=== PATIENT | male | born 1935 | race Caucasian/White ===

== ENCOUNTER 2020-06-25 08:57 | Emergency (ER) | payer MEDICARE, OTHER ==
[~2020-06-25] VITALS: Ht 177 cm; Wt 93.0 kg
[2020-06-25] MEDS ORDERED: KAPSPARGO SPRIN50 MG PO (09:08)
[2020-06-25] MEDS ORDERED: AMLODIPINE BESY10 MG PO (09:08)
[2020-06-25] MEDS ORDERED: OMEPRAZOLE 20 M20 M1 PO (09:09)
[2020-06-25 09:34] LABS: ABSOLUTE BASOPHILS 0.1 thou/uL (0.0-0.2); ABSOLUTE EOSINOPHILS 0.3 thou/uL (0.0-0.7); ABSOLUTE LYMPHOCYTES 1.6 thou/uL (0.8-5.3); ABSOLUTE MONOCYTES 0.9 thou/uL (0.0-1.2); ABSOLUTE NEUTROPHILS 5.4 thou/uL (1.6-8.1); EOSINOPHILS 3.4 %; HEMATOCRIT 40.6 % (42.0-52.0); LYMPHOCYTES 19.4 %; MCHC 34.4 g/dL (28.0-37.0); MCV 87.3 fL (80.0-100.0); MONOCYTES 10.6 %; MPV 9.3 fl. (7.2-11.1); NUCLEATED RBCS 0 /100WBC; PLATELET COUNT* 268 thou/uL (150-400); POLYS 65.6 %; RBC 4.66 mil/uL (4.50-6.00); RDW-CV 12.8 % (10.5-14.5); WBC 8.2 thou/uL (4.0-11.0)
[2020-06-25 09:39] LABS: POTASSIUM 3.6 mmol/L (3.5-5.1)
[2020-06-25 09:43] LABS: ALBUMIN 3.6 g/dL (3.4-5.0); TOTAL PROTEIN 7.1 g/dL (6.4-8.2)
[2020-06-25 10:08] LABS: URINE BILIRUBIN NEGATIVE (Negative); URINE BLOOD NEGATIVE (Negative); URINE CLARITY CLEAR; URINE COLOR YELLOW; URINE GLUCOSE-RANDOM NEGATIVE (Negative); URINE KETONES NEGATIVE (Negative); URINE LEUKOCYTES-REFLEX NEGATIVE (Negative); URINE NITRITE-REFLEX NEGATIVE (Negative); URINE PROTEIN NEGATIVE (Negative); URINE UROBILINOGEN 0.2 E.U./dl (0.2-1.0)
[2020-06-25] MEDS ORDERED: ZOFRAN ODT4 MG SUBLING (11:24)
[2020-06-25 11:46] VITALS: BP 132/76
--- NOTE | 2020-06-25 15:14 | EKG ---
[place] [address] ELECTROCARDIOGRAM REPORT Name: DOUGLAS GODDARD Room: [facility]#: [id number] Admission: 06/25/20 Attend Phys: Discharge: 06/25/20 Date of : 39 Date of Service: 06/25/20919 Report #: [id number] THIS REPORT FOR: //name// [facility] ED Test Date: 2020-06-25 Test Time: 09:20:37 Pat Name: DOUGLAS GODDARD Department: Room: Gender: Helper [employer]: [facility] : 1935 Requested By: Steven Braswell Order Number: [id number] MD: Tunde Mera Measurements Intervals [place] Rate: 66 P: -3 KS: 239 QRS: -27 QRSD: 82 T: 1 QT: 408 QTc: 428 Interpretive Statements Sinus rhythm Prolonged [place] interval Inferior infarct, old Consider anterior infarct No previous ECG available for comparison Electronically Signed On 06-25-2020 15:14:10 [employer] by Tunde Mera [email or web address] <ELECTRONICALLY SIGNED> By: Tunde Mera MD, [facility] 06/25/20 1514 9 9 Tunde Mera MD, [facility] /EPI
== END 2020-06-25 11:46 | disposition home or self-care (01) ==
LOC: M.ERS 08:57
PROVIDERS: Family Medicine
DX: R10.84 Generalized abdominal pain (principal); I10 Essential (primary) hypertension; Z90.49 Acquired absence of other specified parts of digestive tract; Z88.0 Allergy status to penicillin